=== PATIENT | female | born 1940 | race African-American/Black ===

== ENCOUNTER 2016-10-13 13:28 | Emergency (ER) | payer MEDICARE ==
[2016-10-13] MEDS ORDERED: ASPIRIN 81 MG TABLET, CHEWABLE PO ONE (14:59)
--- NOTE | 2016-10-13 15:19 | ER Document Report ---
ED Blood Pressure Problem - General Mode of Arrival: Medic Information source: Patient, Emergency Med Personnel TRAVEL OUTSIDE OF THE [place] IN LAST 30 DAYS: No - HPI Patient complains to provider of: High blood pressure Associated symptoms: Other - See above <GARRETT LUTHER - Last Filed: 10/13/16 17:50> <GABRIELVICTOR HUGO JOE - Last Filed: 10/13/16 22:42> - General Chief Complaint: High Blood Pressure Stated Complaint: BLOOD PRESSURE PROBLEMS Notes: Patient is a 76 year old female, with a past medical history including HTN, who presents to the emergency department via EMS complaining of high blood pressure. Patient complains of a bad headache that is still present. 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 Patient reports that she usually takes Lisinopril but that her prescription has run out and she has not been taking the medication. Patient denies chest pain, breathing problems, difficulty moving, and taking blood thinners. Patient states she has been using Tylenol to treat her headaches at home. PCP: Dr. Castaneda (GARRETT LUTHER) - Related Data Allergies/Adverse Reactions: codeine [Codeine] Allergy (Verified 01/06/15 15:39) iodine [Iodine] Allergy (Verified 01/06/15 15:39) Penicillins Allergy (Verified 01/06/15 15:39) Sulfa (Sulfonamide Antibiotics) Allergy (Verified 01/06/15 15:39) Past Medical History - General Information source: Patient - Social History Smoking Status: Unknown if Ever Smoked Family History: Reviewed & Not Pertinent - Past Medical History Cardiac Medical History: Reports: Hx Hypertension - unmedicated Musculoskeltal Medical History: Reports Hx Arthritis Past Surgical History: Reports: Hx Breast Surgery, Hx Orthopedic Surgery - Immunizations Immunizations up to date: Yes Hx Diphtheria, Pertussis, Tetanus Vaccination: No Hx Pneumococcal Vaccination: 07/22/13 <GARRETT LUTHER - Last Filed: 10/13/16 17:50> Review of Systems - Review of Systems Constitutional: See HPI, Other - high blood pressure EENT: No symptoms reported Cardiovascular: denies: Chest pain Respiratory: denies: Other - Breathing difficulty Gastrointestinal: denies: Abdominal pain Genitourinary: No symptoms reported Female Genitourinary: No symptoms reported Musculoskeletal: No symptoms reported Skin: No symptoms reported Hematologic/Lymphatic: No symptoms reported Neurological/Psychological: See HPI, Headaches -: Yes All other systems reviewed and negative <GARRETT LUTHER - Last Filed: 10/13/16 17:50> Physical Exam - Vital signs Interpretation: Hypertensive, Tachycardic - General General appearance: Alert In distress: Mild - HEENT Head: Normocephalic, Atraumatic Eyes: Normal Pupils: PERRL - Respiratory Respiratory status: No respiratory distress Chest status: Nontender Breath sounds: Normal Chest palpation: Normal - Cardiovascular Rhythm: Regular Heart sounds: Normal auscultation Murmur: No - Abdominal Inspection: Normal Distension: No distension Bowel sounds: Normal Tenderness: Nontender Organomegaly: No organomegaly - Back Back: Normal, Nontender - Extremities General upper extremity: Normal inspection, Nontender, Normal color, Normal ROM , Normal temperature General lower extremity: Normal inspection, Nontender, Normal color, Normal ROM , Normal temperature, Normal weight bearing. No: Stacey's sign - Neurological Neuro grossly intact: Yes Cognition: Normal Orientation: AAOx4 [place] Coma Scale Eye Opening: Spontaneous [place] Coma Scale Verbal: Oriented Vero Coma Scale Motor: Obeys Commands [place] Coma Scale Total: 15 Speech: Normal Motor strength normal: LUE, RUE, LLE, RLE Sensory: Normal - Psychological Associated symptoms: Normal affect, Normal mood - Skin Skin Temperature: Warm Skin Moisture: Dry Skin Color: Normal <VICTOR HUGO RIOS - Last Filed: 10/13/16 22:42> - Vital signs Vitals: Temp Pulse Resp BP Pulse Ox 98.4 F 130 H 16 166/116 H 96 10/13/16 13:38 10/13/16 13:38 10/13/16 13:38 10/13/16 13:38 10/13/16 13:38 Course - Laboratory Result Diagrams: 10/13/16 16:30 10/13/16 16:30 <GARRETT LUTHER - Last Filed: 10/13/16 17:50> - Laboratory Result Diagrams: 10/13/16 16:30 10/13/16 16:30 <VICTOR HUGO RIOS - Last Filed: 10/13/16 22:42> - Re-evaluation Re-evalutation: 10/13/16 22:39 Patient is a 76-year-old female who presented with hypertension and tachycardia earlier shape. Patient was given labetalol and Zofran prior to arrival. Patient has been observed in the emergency department for 9 hours now. Patient has had complete resolution of her headache. Blood pressure is down. Patient has been discharged with Dr. Rg. She has not been taking her medications because she said that she ran out. Dr. Rg stated to medicate the patient with metoprolol and lisinopril as are her home medications and the patient could be sent home. Patient informed me that she didn't take the medication because she doesn't like it. Patient is instructed that she needs to take her metoprolol because of her history of A. fib and very high blood pressure today. It is been told to her that if she does not take it she is at risk for heart attack or stroke. Patient has been instructed to take at least the metoprolol if she does not want to take the lisinopril at this time. She is to follow-up with Dr. Castaneda on Saturday and if she cannot do that then Saturday. Understands and agrees with plan. Stable for discharge. (VICTOR HUGO RIOS ) - Vital Signs Vital signs: Temp Pulse Resp BP Pulse Ox 98.3 F 130 H 19 146/85 H 98 10/13/16 22:27 10/13/16 13:38 10/13/16 22:27 10/13/16 22:27 10/13/16 22:27 - Laboratory Laboratory results interpreted by me: 10/13/16 10/13/16 10/13/16 15:45 16:30 16:30 RDW 14.1 H Chloride 110 H Total Protein 6.0 L Albumin 3.3 L Urine Blood SMALL H Ur Leukocyte Esterase TRACE H Critical Care Note - Critical Care Note Total time excluding time spent on procedures (mins): 35 - evaluation and management of blood pressure, tachycardia, re-evaluations, coordination with specialist, counseling of patient <VICTOR HUGO RIOS - Last Filed: 10/13/16 22:42> Discharge <GARRETT LUTHER - Last Filed: 10/13/16 17:50> <VICTOR HUGO RIOS - Last Filed: 10/13/16 22:42> - Discharge Clinical Impression: Hypertensive urgency Headache Qualifiers: Headache type: unspecified Headache chronicity pattern: acute headache Intractability: not intractable Qualified Code(s): R51 - Headache Condition: Stable Disposition: HOME, SELF-CARE Instructions: High Blood Pressure, Requiring Treatment ([facility]), Headache ([facility]) Prescriptions: Lisinopril 10 mg PO DAILY #30 tablet Metoprolol Succinate [Toprol Xl 50 mg Tab.sr] 50 mg PO DAILY #30 tab.sr.24h Referrals: FERNIE CASTANEDA MD [Primary Care Provider] - 10/15/16 Scribe Attestation: 10/13/16 22:42 I personally performed the services described in the documentation, reviewed and edited the documentation which was dictated to the scribe in my presence, and it accurately records my words and actions. (VICTOR HUGO RIOS) Scribe Documentation - Scribe Written by Torsten:: torsten Cox, 10/13/16, 1024 acting as scribe for :: Gabriel <GARRETT LUTHER - Last Filed: 10/13/16 17:50>
[2016-10-13] MEDS ORDERED: DIPHENHYDRAMINE HCL 50 MG/ML VIAL IV ONE (15:43)
[2016-10-13 16:49] LABS: ABSOLUTE BASOPHILS # (AUTO) 0.1 10^3/uL (0.0-0.2); ABSOLUTE EOSINOPHILS # (AUTO) 0.1 10^3/uL (0.0-0.6); ABSOLUTE LYMPHOCYTES (AUTO) 1.7 10^3/uL (0.5-4.7); ABSOLUTE MONOCYTES (AUTO) 0.3 10^3/uL (0.1-1.4); ABSOLUTE NEUT (AUTO) 3.2 10^3/uL (1.7-8.2); BASOPHILS % (AUTO) 1.9 % (0-2); EOSINOPHILS % (AUTO) 1.3 % (0-6); HEMATOCRIT 39.2 % (36.0-47.0); HGB HCT DIFFERENCE -0.2; LYMPHOCYTES % (AUTO) 32.4 % (13-45); MEAN CORPUSCULAR HEMOGLOBIN 29.1 pg (27.0-33.4); MEAN CORPUSCULAR HGB CONC 33.1 g/dL (32.0-36.0); MEAN CORPUSCULAR VOLUME 88 fl (80-97); MONOCYTES % (AUTO) 5.3 % (3-13); RED BLOOD COUNT 4.46 10^6/uL (3.72-5.28); RED CELL DISTRIBUTION WIDTH 14.1 % (11.5-14.0); SEGMENTED NEUTROPHILS % (AUTO) 59.1 % (42-78); WHITE BLOOD COUNT 5.4 10^3/uL (4.0-10.5)
[2016-10-13 16:56] LABS: PROTHROMBIN TIME 13.9 SEC (11.4-15.4)
[2016-10-13 16:57] LABS: ALANINE AMINOTRANSFERASE 27 U/L (9-52); ALBUMIN 3.3 g/dL (3.5-5.0); ALKALINE PHOSPHATASE 92 U/L (38-126); ANION GAP 9 (5-19); ASPARTATE AMINO TRANSFERASE 25 U/L (14-36); BILIRUBIN,DIRECT 0.3 mg/dL (0.0-0.4); BILIRUBIN,TOTAL 0.3 mg/dL (0.2-1.3); BLOOD UREA NITROGEN 10 mg/dL (7-20); CALCIUM 8.9 mg/dL (8.4-10.2); CARBON DIOXIDE 23 mmol/L (22-30); CHLORIDE 110 mmol/L (98-107); CREATINE KINASE 58 U/L (30-135); CREATININE RESULT 0.87 mg/dL (0.52-1.25); GLUCOSE 109 mg/dL (75-110); SODIUM 142.4 mmol/L (137-145)
[2016-10-13 17:03] LABS: APPEARANCE,URINE CLEAR; BILIRUBIN,URINE NEGATIVE (NEGATIVE); GLUCOSE, URINE NEGATIVE (NEGATIVE); KETONES,URINE NEGATIVE (NEGATIVE); LEUKOCYTE ESTERASE,URINE TRACE (NEGATIVE); NITRITE,URINE NEGATIVE (NEGATIVE); PROTEIN,URINE NEGATIVE (NEGATIVE); URINE SPECIFIC GRAVITY 1.008; UROBILINOGEN,URINE NEGATIVE mg/dL (<2.0)
[2016-10-13 17:09] LABS: CREATINE KINASE MB 0.54 ng/mL (<4.55)
[2016-10-13 17:14] LABS: TROPONIN I < 0.012 ng/mL
--- NOTE | 2016-10-13 17:19 | EKG REPORT ---
SEVERITY:- ABNORMAL ECG - SINUS TACHYCARDIA RIGHT BUNDLE BRANCH BLOCK : Confirmed by: Romeo Farfan MD 13-Oct-2016 17:19:15
[2016-10-13] MEDS ORDERED: METOPROLOL SUCCINATE 50 MG TAB.SR.24H PO ONE (20:14)
[2016-10-13 22:37] VITALS: BP 146/85
== END 2016-10-13 22:37 | disposition home or self-care (01) ==
LOC: ER 13:28
DX: I16.0 Hypertensive urgency (principal); R51 Headache; R00.0 Tachycardia, unspecified; I10 Essential (primary) hypertension; Z88.6 Allergy status to analgesic agent; Z88.0 Allergy status to penicillin; Z88.2 Allergy status to sulfonamides
CPT/HCPCS: 93005; 99291; 96374; 36415; 82553; 82550; 85025; 85610; 80053; 81001; 84484; 71010; 70450; 70496; 93010; A9270 ×2; J1200

== ENCOUNTER → 2017-11-21 | Outpatient (CLI) | payer MEDICARE ==
--- NOTE | 2017-11-21 16:56 | RADIOLOGY REPORT (SQ) ---
EXAM DESCRIPTION: HIP RIGHT AP/LATERAL COMPLETED DATE/TIME: 11/21/2017 12:06 pm REASON FOR STUDY: PAIN IN RIGHT HIP M25.551 PAIN IN RIGHT HIP COMPARISON: None. NUMBER OF VIEWS: Two views. TECHNIQUE: AP pelvis and additional frog-leg view of the right hip. LIMITATIONS: None. FINDINGS: MINERALIZATION: Osteopenic RIGHT HIP: Right acute subcapital femoral neck fracture, with very mild valgus angulation. This rep ort was called to Xiao Ca 1640 hours 11/21/2017. LEFT HIP: No fracture or dislocation. No worrisome bone lesions. PUBIS AND ISCHIUM: No fracture. PELVIS: No fracture. SACRUM: No fracture or dislocation. No worrisome bone lesions. LOWER LUMBAR SPINE: Not well seen SOFT TISSUES: No findings. OTHER: No other significant finding. IMPRESSION: Acute subcapital femoral neck fracture with mild valgus angulation. Report called to Xiao Ca 1640 hours 11/21/2017 TECHNICAL DOCUMENTATION: JOB ID: [id number] [employer]- All Rights Reserved Reading location - IP/workstation name: [email or web address]
== END ==
LOC: OD 11:51
PROVIDERS: ATTEND Nurse Practitioner Family
DX: M25.551 Pain in right hip (principal); S72.011A Unspecified intracapsular fracture of right femur, initial encounter for closed fracture; X58.XXXA Exposure to other specified factors, initial encounter

== ENCOUNTER 2017-11-22 16:44 | Inpatient (IN) | payer MEDICARE ==
--- NOTE | 2017-11-22 17:17 | ER Document Report ---
ED Medical Screen (RME) - General Chief Complaint: Hip Injury Stated Complaint: FALL/RIGHT HIP PAIN Time Seen by Provider: 11/22/17 17:08 Notes: 77-year-old female patient fell on 10/26/2017 injuring her right hip. Her pain management doctors x-rayed the hip yesterday and shows an impacted fracture of the right femoral neck. Dr. Clinton had been consulted and requested the patient come through the emergency room and be admitted by her primary care provider. I have greeted and performed a rapid initial assessment of this patient. A comprehensive ED assessment and evaluation of the patient, analysis of test results and completion of the medical decision making process will be conducted by additional ED providers. TRAVEL OUTSIDE OF THE [place] IN LAST 30 DAYS: No - Related Data Allergies/Adverse Reactions: aloe vera Allergy (Verified 11/22/17 17:07) codeine [Codeine] Allergy (Verified 11/22/17 17:07) iodine [Iodine] Allergy (Verified 11/22/17 17:07) Penicillins Allergy (Verified 11/22/17 17:07) Sulfa (Sulfonamide Antibiotics) Allergy (Verified 11/22/17 17:07) Past Medical History - Social History Chew tobacco use (# tins/day): No Frequency of alcohol use: None Drug Abuse: None - Past Medical History Cardiac Medical History: Reports: Hx Hypertension - unmedicated Renal/ Medical History: Denies: Hx Peritoneal Dialysis Musculoskeltal Medical History: Reports Hx Arthritis Psychiatric Medical History: Denies: Hx Depression Past Surgical History: Reports: Hx Breast Surgery, Hx Orthopedic Surgery - Immunizations Immunizations up to date: Yes Hx Diphtheria, Pertussis, Tetanus Vaccination: No Physical Exam - Vital signs Vitals: Temp Pulse Resp BP Pulse Ox 97.8 F 58 L 18 127/75 H 96 11/22/17 16:51 11/22/17 16:51 11/22/17 16:51 11/22/17 16:51 11/22/17 16:51 Course - Vital Signs Vital signs: Temp Pulse Resp BP Pulse Ox 97.8 F 58 L 18 127/75 H 96 11/22/17 16:51 11/22/17 16:51 11/22/17 16:51 11/22/17 16:51 11/22/17 16:51
--- NOTE | 2017-11-22 17:40 | RADIOLOGY REPORT (SQ) ---
EXAM DESCRIPTION: CHEST SINGLE VIEW COMPLETED DATE/TIME: 11/22/2017 5:29 pm REASON FOR STUDY: pre-op, hip FX COMPARISON: 10/13/2016 EXAM PARAMETERS: NUMBER OF VIEWS: One view. TECHNIQUE: Single frontal radiographic view of the chest acquired. RADIATION DOSE: NA LIMITATIONS: None. FINDINGS: LUNGS AND PLEURA: No opacities, masses or pneumothorax. No pleural effusion. MEDIASTINUM AND HILAR STRUCTURES: No masses. Contour normal. HEART AND VASCULAR STRUCTURES: Heart normal in size. Normal vasculature. BONES: No acute findings. HARDWARE: None in the chest. OTHER: Breast prostheses. IMPRESSION: NO ACUTE RADIOGRAPHIC FINDING IN THE CHEST. TECHNICAL DOCUMENTATION: JOB ID: [id number] [email or web address]- All Rights Reserved Reading location - IP/workstation name: [email or web address]
[2017-11-22 18:09] LABS: ABSOLUTE EOSINOPHILS # (AUTO) 0.1 10^3/uL (0.0-0.6); ABSOLUTE LYMPHOCYTES (AUTO) 2.7 10^3/uL (0.5-4.7); ABSOLUTE MONOCYTES (AUTO) 0.5 10^3/uL (0.1-1.4); ABSOLUTE NEUT (AUTO) 3.1 10^3/uL (1.7-8.2); BASOPHILS % (AUTO) 0.7 % (0-2); EOSINOPHILS % (AUTO) 1.4 % (0-6); HEMATOCRIT 44.2 % (36.0-47.0); HEMOGLOBIN 14.9 g/dL (12.0-15.5); LYMPHOCYTES % (AUTO) 41.9 % (13-45); MEAN CORPUSCULAR HEMOGLOBIN 29.5 pg (27.0-33.4); MEAN CORPUSCULAR HGB CONC 33.7 g/dL (32.0-36.0); MEAN CORPUSCULAR VOLUME 88 fl (80-97); MONOCYTES % (AUTO) 8.1 % (3-13); PLATELET COUNT 329 10^3/uL (150-450); RED BLOOD COUNT 5.06 10^6/uL (3.72-5.28); RED CELL DISTRIBUTION WIDTH 16.1 % (11.5-14.0); SEGMENTED NEUTROPHILS % (AUTO) 47.9 % (42-78); TOTAL CELLS COUNTED % (AUTO) 100 %; WHITE BLOOD COUNT 6.4 10^3/uL (4.0-10.5)
[2017-11-22 18:10] LABS: INTERNATIONAL RATION (INR) 0.92; PROTHROMBIN TIME 12.8 SEC (11.4-15.4)
--- NOTE | 2017-11-22 18:13 | ER Document Report ---
ED General - General Chief Complaint: Hip Injury Stated Complaint: FALL/RIGHT HIP PAIN Time Seen by Provider: 11/22/17 17:08 Mode of Arrival: Ambulatory Information source: Patient, Relative Notes: 77-year-old female with a history of hypertension presents after her pain management physician found her to have a right hip fracture. Patient states that she had a trip and fall one month prior to arrival. She states she experienced cramping in her right leg which then subsequently gave out causing her to fall backwards onto her buttocks. She denies any head injury, loss of consciousness. She has been ambulating for the last month but with pain. Patient is in pain management for chronic right shoulder pain. TRAVEL OUTSIDE OF THE [place] IN LAST 30 DAYS: No - HPI Onset: Other - Month prior to arrival Onset/Duration: Constant Quality of pain: Throbbing Severity: Mild Associated symptoms: None Exacerbated by: Walking Relieved by: Denies Similar symptoms previously: No Recently seen / treated by doctor: Yes - Related Data Allergies/Adverse Reactions: aloe vera Allergy (Verified 11/22/17 17:07) codeine [Codeine] Allergy (Verified 11/22/17 17:07) iodine [Iodine] Allergy (Verified 11/22/17 17:07) Penicillins Allergy (Verified 11/22/17 17:07) Sulfa (Sulfonamide Antibiotics) Allergy (Verified 11/22/17 17:07) Past Medical History - General Information source: Patient - Social History Smoking Status: Current Every Day Smoker Chew tobacco use (# tins/day): No Frequency of alcohol use: None Drug Abuse: None Lives with: Family Family History: Reviewed & Not Pertinent Patient has suicidal ideation: No Patient has homicidal ideation: No - Past Medical History Cardiac Medical History: Reports: Hx Hypertension - unmedicated Renal/ Medical History: Denies: Hx Peritoneal Dialysis Musculoskeltal Medical History: Reports Hx Arthritis Psychiatric Medical History: Denies: Hx Depression Past Surgical History: Reports: Hx Breast Surgery, Hx Orthopedic Surgery - Immunizations Immunizations up to date: Yes Hx Diphtheria, Pertussis, Tetanus Vaccination: No Hx Pneumococcal Vaccination: 07/22/13 Review of Systems - Review of Systems Notes: Patient denies fever, chills, nausea, vomiting, headache, ear pain, sore throat , cough, chest pain, shortness of breath, abdominal pain, back pain, dysuria, hematuria, rash, SI/HI. Physical Exam - Vital signs Vitals: Temp Pulse Resp BP Pulse Ox 97.8 F 58 L 18 127/75 H 96 11/22/17 16:51 11/22/17 16:51 11/22/17 16:51 11/22/17 16:51 11/22/17 16:51 Interpretation: Normal. No: Febrile - Notes Notes: PHYSICAL EXAMINATION: GENERAL: Well-appearing, well-nourished and in no acute distress. HEAD: Atraumatic, normocephalic. EYES: Pupils equal round and reactive to light, extraocular movements intact, conjunctiva are normal. ENT: Nares patent, oropharynx clear without exudates. Moist mucous membranes. NECK: Normal range of motion, supple without lymphadenopathy LUNGS: Breath sounds clear to auscultation bilaterally and equal. No wheezes rales or rhonchi. HEART: Regular rate and rhythm without murmurs ABDOMEN: Soft, nontender, nondistended abdomen. No guarding, no rebound. No masses appreciated. Female : deferred Musculoskeletal: Normal range of motion, no pitting or edema. No cyanosis. No obvious deformity of the right hip. Pain with logrolling. DP pulse intact. NEUROLOGICAL: Cranial nerves grossly intact. Normal speech, normal gait. Normal sensory, motor exams PSYCH: Normal mood, normal affect. SKIN: Warm, Dry, normal turgor, no rashes or lesions noted. Course - Re-evaluation Re-evalutation: Laboratory 11/22/17 11/22/17 11/22/17 17:46 17:46 17:46 WBC 6.4 RBC 5.06 Hgb 14.9 Hct 44.2 MCV 88 MCH 29.5 MCHC 33.7 RDW 16.1 H Plt Count 329 Seg Neutrophils % 47.9 Lymphocytes % 41.9 Monocytes % 8.1 Eosinophils % 1.4 Basophils % 0.7 Absolute Neutrophils 3.1 Absolute Lymphocytes 2.7 Absolute Monocytes 0.5 Absolute Eosinophils 0.1 Absolute Basophils 0.0 PT 12.8 INR 0.92 Sodium Cancelled Potassium Cancelled Chloride Cancelled Carbon Dioxide Cancelled Anion Gap Cancelled BUN Cancelled Creatinine Cancelled Est GFR ( Amer) Cancelled Est GFR (Non-Af Amer) Cancelled Glucose Cancelled Calcium Cancelled Total Bilirubin Cancelled Direct Bilirubin Cancelled Neonat Total Bilirubin Cancelled Neonat Direct Bilirubin Cancelled Neonat Indirect Bili Cancelled AST Cancelled ALT Cancelled Alkaline Phosphatase Cancelled Total Protein Cancelled Albumin Cancelled 11/22/17 19:01 Patient presents after x-ray performed by her pain management physician revealed a right hip fracture. Orthopedic surgery aware. Patient will be admitted by Dr. Gill. - Vital Signs Vital signs: Temp Pulse Resp BP Pulse Ox 97.8 F 58 L 18 127/75 H 96 11/22/17 16:51 11/22/17 16:51 11/22/17 16:51 11/22/17 16:51 11/22/17 16:51 - Laboratory Result Diagrams: 11/22/17 17:46 11/22/17 17:46 Laboratory results interpreted by me: 11/22/17 17:46 RDW 16.1 H - Diagnostic Test Radiology reviewed: Image reviewed Discharge - Discharge Clinical Impression: Closed right hip fracture Qualifiers: Encounter type: initial encounter Qualified Code(s): S72.001A - Fracture of unspecified part of neck of right femur, initial encounter for closed fracture Condition: Good Disposition: ADMITTED INPATIENT Admitting Provider: Bridget
[2017-11-22 19:38] LABS: ALANINE AMINOTRANSFERASE 23 U/L (9-52); ALBUMIN 4.2 g/dL (3.5-5.0); ALKALINE PHOSPHATASE 89 U/L (38-126); ANION GAP 12 (5-19); ASPARTATE AMINO TRANSFERASE 21 U/L (14-36); BILIRUBIN,DIRECT 0.4 mg/dL (0.0-0.4); BILIRUBIN,TOTAL 0.5 mg/dL (0.2-1.3); BLOOD UREA NITROGEN 9 mg/dL (7-20); CALCIUM 10.1 mg/dL (8.4-10.2); CARBON DIOXIDE 22 mmol/L (22-30); CHLORIDE 106 mmol/L (98-107); GLUCOSE 89 mg/dL (75-110); POTASSIUM 4.3 mmol/L (3.6-5.0); TOTAL PROTEIN 7.3 g/dL (6.3-8.2)
--- NOTE | 2017-11-22 21:14 | EKG REPORT ---
SEVERITY:- ABNORMAL ECG - SINUS RHYTHM SUPRAVENTRICULAR BIGEMINY INCOMPLETE RIGHT BUNDLE BRANCH BLOCK : Confirmed by: Cyndee Limon 22-Nov-2017 21:14:05
[2017-11-22] MEDS ORDERED: ENOXAPARIN SODIUM INJ 40 MG/0.4 ML DISP.SYRIN SUBCUT ONE (22:00)
[2017-11-23] MEDS: LANSOPRAZOLE 30 MG TAB.RAP.DR PO SCH (05:46)
[2017-11-23] MEDS ORDERED: ENOXAPARIN SODIUM INJ 40 MG/0.4 ML DISP.SYRIN SUBCUT SCH (10:00)
[2017-11-23] MEDS: METOPROLOL SUCCINATE 50 MG TAB.SR.24H PO SCH (10:38)
--- NOTE | 2017-11-23 12:14 | PDOC H&P ---
History of Present Illness Admission Date/PCP: 11/22/17 18:32 ALBA CRUZ NP Patient complains of: Right hip pain History of Present Illness: GERARD PRUITT is a 77 year old female patient of Dr Romo who presented to the ED for further evaluation due to right hip pain and difficulty with walking. She reported that she developed right leg muscle spasm, lock up of her knee and subsequently fell on her right hip joint. There was subsequent pain and difficulty with walking. She has been staying at home since onset of her symptom about 1 month ago. She was referred to the ED by her pain management team upon discovery of closed fracture on her right hip X ray. The X ray was completed outside of our facility. She denied any chest pain, palpitation, dizziness or vertigo preceding her fall incident at home. She denied any fever, chills, or genitourinary symptoms to suggest ongoing infection. She denied tripping over any object or change in her floor level. Past Medical History Cardiac Medical History: Reports: Hypertension - unmedicated Musculoskeltal Medical History: Reports: Arthritis Psychiatric Medical History: Denies: Depression Past Surgical History Past Surgical History: Reports: Orthopedic Surgery Social History Lives with: Family Smoking Status: Current Every Day Smoker Frequency of Alcohol Use: None Hx Recreational Drug Use: No Drugs: None Hx Prescription Drug Abuse: No - Advance Directive Resuscitation Status: Full Code Family History Family History: Reviewed & Not Pertinent Parental Family History Reviewed: Yes Children Family History Reviewed: Yes Sibling(s) Family History Reviewed.: Yes Medication/Allergy Home Medications: Metoprolol Succinate [Toprol Xl 50 mg Tab.sr] 50 mg PO DAILYP PRN 11/22/17 Oxycodone HCl [Oxycodone HCl 10 MG Tablet] 10 mg PO Q8HP PRN 11/22/17 Allergies/Adverse Reactions: aloe vera Allergy (Verified 11/22/17 17:07) codeine [Codeine] Allergy (Verified 11/22/17 17:07) iodine [Iodine] Allergy (Verified 11/22/17 17:07) Penicillins Allergy (Verified 11/22/17 17:07) Sulfa (Sulfonamide Antibiotics) Allergy (Verified 11/22/17 17:07) Review of Systems Constitutional: ABSENT: chills, fever(s), headache(s), weight gain, weight loss Ears: ABSENT: hearing changes Nose, Mouth, and Throat: ABSENT: as per HPI, headache(s), mouth pain, sore throat, vertigo, other Cardiovascular: ABSENT: chest pain, dyspnea on exertion, edema, orthropnea, palpitations Respiratory: PRESENT: cough - occasionall productive of yellow mucous Gastrointestinal: ABSENT: abdominal pain, constipation, diarrhea, hematemesis, hematochezia, nausea, vomiting Musculoskeletal: PRESENT: deformity - related to multiple joints involvement with arthritis Integumentary: ABSENT: rash, wounds Neurological: ABSENT: abnormal gait, abnormal speech, confusion, dizziness, focal weakness, syncope Psychiatric: ABSENT: anxiety, depression, homidical ideation, suicidal ideation Endocrine: ABSENT: cold intolerance, heat intolerance, polydipsia, polyuria Hematologic/Lymphatic: ABSENT: easy bleeding, easy bruising, lymphadenopathy Allergic/Immunologic: ABSENT: seasonal rhinorrhea Physical Exam Vital Signs: Temp Pulse Resp BP Pulse Ox 98.5 F 67 16 124/65 64 L 11/23/17 04:00 11/23/17 07:00 11/23/17 08:00 11/23/17 08:00 11/23/17 08:00 Intake & Output 11/22/17 11/23/17 11/24/17 06:59 06:59 06:59 Intake Total 317 Balance 317 Weight 49.6 kg General appearance: PRESENT: no acute distress, well-developed, well-nourished Head exam: PRESENT: atraumatic, normocephalic Eye exam: PRESENT: conjunctiva pink, EOMI, PERRLA. ABSENT: scleral icterus Mouth exam: PRESENT: moist Respiratory exam: PRESENT: clear to auscultation mary ann. ABSENT: rhonchi, wheezes Cardiovascular exam: PRESENT: RRR. ABSENT: diastolic murmur, rubs, systolic murmur Pulses: PRESENT: normal dorsalis pedis pul, +2 pedal pulses bilateral Vascular exam: PRESENT: normal capillary refill. ABSENT: pallor GI/Abdominal exam: PRESENT: normal bowel sounds, soft. ABSENT: distended, guarding, mass, organolmegaly, rebound, tenderness Rectal exam: PRESENT: deferred Extremities exam: PRESENT: tenderness - right hip joint region with motion and palpation. ABSENT: calf tenderness, pedal edema Musculoskeletal exam: PRESENT: deformity - related to multiple joints involvment with arthritis. ABSENT: ambulatory Neurological exam: PRESENT: alert, awake, oriented to person, oriented to place , oriented to time, oriented to situation, CN II-XII grossly intact. ABSENT: motor sensory deficit Psychiatric exam: PRESENT: appropriate affect, normal mood. ABSENT: homicidal ideation, suicidal ideation Skin exam: PRESENT: dry, intact, warm. ABSENT: cyanosis, rash Results Laboratory Results: 11/22/17 19:05 11/22/17 11/22/17 19:05 19:05 Sodium 140.0 Potassium 4.3 Chloride 106 Carbon Dioxide 22 Anion Gap 12 BUN 9 Creatinine 0.80 Est GFR ( Amer) > 60 Est GFR (Non-Af Amer) > 60 Glucose 89 Calcium 10.1 Total Bilirubin 0.5 AST 21 ALT 23 Alkaline Phosphatase 89 Total Protein 7.3 Albumin 4.2 Blood Type B POSITIVE Antibody Screen NEGATIVE Impressions: Chest X-Ray 11/22/17 17:16 IMPRESSION: NO ACUTE RADIOGRAPHIC FINDING IN THE CHEST. Assessment & Plan - Diagnosis (1) Closed right hip fracture Qualifiers: Encounter type: initial encounter Qualified Code(s): S72.001A - Fracture of unspecified part of neck of right femur, initial encounter for closed fracture (2) Fracture of right hip due to osteoporosis Qualifiers: Encounter type: initial encounter Qualified Code(s): M80.051A - Age- related osteoporosis with current pathological fracture, right femur, initial encounter for fracture Is this a current diagnosis for this admission?: Yes Plan: See covering attending physician orders. (4) Osteoarthritis of both shoulders Qualifiers: Osteoarthritis type: primary Qualified Code(s): M19.011 - Primary osteoarthritis, right shoulder; M19.012 - Primary osteoarthritis, left shoulder ; M19.012 - Primary osteoarthritis, left shoulder Is this a current diagnosis for this admission?: Yes Plan: See covering attending physician orders. (5) Chronic pain syndrome Is this a current diagnosis for this admission?: Yes Plan: See covering attending physician orders. (6) Chronic prescription opiate use Is this a current diagnosis for this admission?: Yes Plan: See covering attending physician orders. - Time Time Spent: 50 to 70 Minutes Medications reviewed and adjusted accordingly: Yes Anticipated discharge: Home with Homehealth - Inpatient Certification Based on my medical assessment, after consideration of the patient's comorbidities, presenting symptoms, or acuity I expect that the services needed warrant INPATIENT care.: Yes I certify that my determination is in accordance with my understanding of Medicare's requirements for reasonable and necessary INPATIENT services [42 CFR 412.3e].: Yes Medical Necessity: Need Close Monitoring Due to Risk of Patient Decompensation, Need For IV Fluids, Need For Continuous Telemetry Monitoring, Need for Surgery, Risk of Complication if Not Cared For in Hospital Post Hospital Care: D/C Jitney Driver Documentation - Plan Summary Plan Summary: See covering attending physician orders.
[2017-11-23] MEDS ORDERED: GUAIFENESIN SYRP 200 MG/10 ML UDC PO PRN (12:16)
--- NOTE | 2017-11-23 17:59 | RADIOLOGY REPORT (SQ) ---
EXAM DESCRIPTION: HIP RIGHT AP/LATERAL COMPLETED DATE/TIME: 11/23/2017 5:44 pm REASON FOR STUDY: Fall with right hip pain COMPARISON: 11/21/2017 NUMBER OF VIEWS: Two views. TECHNIQUE: AP pelvis and additional frog-leg view of the right hip. LIMITATIONS: None. FINDINGS: MINERALIZATION: Normal. RIGHT HIP: Subcapital fracture of the right femoral neck. Unchanged from 2 days ago. LEFT HIP: No fracture or dislocation. No worrisome bone lesions. PUBIS AND ISCHIUM: No fracture. PELVIS: No fracture. SACRUM: No fracture or dislocation. No worrisome bone lesions. LOWER LUMBAR SPINE: No fracture or dislocation. No worrisome bone lesions. No significant disc disea se. SOFT TISSUES: No findings. OTHER: No other significant finding. IMPRESSION: Subcapital fracture of the right femoral neck. TECHNICAL DOCUMENTATION: JOB ID: [id number] [employer]- All Rights Reserved Reading location - IP/workstation name: [email or web address]
--- NOTE | 2017-11-23 18:02 | PDOC CONSULTATION ---
Consultation Consult Date: 11/23/17 Consult reason:: Right hip fracture History of Present Illness Admission Date/PCP: 11/22/17 18:32 ALBA CRUZ NP Patient complains of: Right hip pain History of Present Illness: GERARD PRUITT is a 77 year old female status post fall about 3 weeks ago. She had increasing pain in her groin on the right side with ambulation and weightbearing. She saw her pain management clinic which order an x-ray and determined the patient had a valgus impacted right hip femoral neck fracture. Patient complains of range of motion pain and the groin and tenderness to palpation on the groin as well as pain with ambulation and weightbearing. Denies any numbness or tingling or paresthesias or any other extremity injury. Past Medical History Cardiac Medical History: Reports: Hypertension - unmedicated Musculoskeltal Medical History: Reports: Arthritis Psychiatric Medical History: Denies: Depression Past Surgical History Past Surgical History: Reports: Orthopedic Surgery Social History Lives with: Family Smoking Status: Current Every Day Smoker Frequency of Alcohol Use: None Hx Recreational Drug Use: No Drugs: None Hx Prescription Drug Abuse: No - Advance Directive Resuscitation Status: Full Code Family History Parental Family History Reviewed: No Children Family History Reviewed: Yes - Daughter has kidney failure that requires dialysis. Sibling(s) Family History Reviewed.: No Medication/Allergy Home Medications: Metoprolol Succinate [Toprol Xl 50 mg Tab.sr] 50 mg PO DAILYP PRN 11/22/17 Oxycodone HCl [Oxycodone HCl 10 MG Tablet] 10 mg PO Q8HP PRN 11/22/17 Allergies/Adverse Reactions: aloe vera Allergy (Verified 11/22/17 17:07) codeine [Codeine] Allergy (Verified 11/22/17 17:07) iodine [Iodine] Allergy (Verified 11/22/17 17:07) Penicillins Allergy (Verified 11/22/17 17:07) Sulfa (Sulfonamide Antibiotics) Allergy (Verified 11/22/17 17:07) Review of Systems Constitutional: ABSENT: fever(s), headache(s), night sweats Eyes: ABSENT: visual disturbances Ears: ABSENT: hearing changes Nose, Mouth, and Throat: ABSENT: headache(s), sore throat Cardiovascular: ABSENT: chest pain, edema, orthropnea Respiratory: ABSENT: dyspnea, hemoptysis Gastrointestinal: ABSENT: diarrhea, dysphagia, hematemesis, hematochezia Genitourinary: ABSENT: dysuria, hematuria Musculoskeletal: PRESENT: as per HPI, catching, joint swelling. ABSENT: deformity, dislocation Integumentary: ABSENT: lesions, pruritus, rash Neurological: PRESENT: as per HPI, weakness. ABSENT: abnormal gait, convulsions , numbness, paresthesias Psychiatric: ABSENT: hallucinations, homidical ideation, suicidal ideation Endocrine: ABSENT: cold intolerance, heat intolerance Hematologic/Lymphatic: ABSENT: lymphadenopathy Allergic/Immunologic: ABSENT: seasonal rhinorrhea Physical Exam Vital Signs: Temp Pulse Resp BP Pulse Ox 37.3 C 65 20 122/64 95 11/23/17 11:30 11/23/17 14:00 11/23/17 11:30 11/23/17 11:30 11/23/17 11:30 Intake & Output 11/22/17 11/23/17 11/24/17 06:59 06:59 06:59 Intake Total 317 239 Balance 317 239 Weight 49.6 kg General appearance: PRESENT: no acute distress, thin Eye exam: PRESENT: EOMI, PERRLA. ABSENT: nystagmus Ear exam: PRESENT: normal external ear exam Mouth exam: PRESENT: neck supple Neck exam: ABSENT: lymphadenopathy, thyromegaly Respiratory exam: PRESENT: symmetrical, unlabored. ABSENT: accessory muscle use , tachypnea Pulses: PRESENT: +1 pedal pulses bilateral Vascular exam: PRESENT: normal capillary refill GI/Abdominal exam: PRESENT: soft. ABSENT: organolmegaly, tenderness Musculoskeletal exam: ABSENT: deformity, dislocation Neurological exam: PRESENT: alert, awake, oriented to person, oriented to place , oriented to time, oriented to situation Psychiatric exam: PRESENT: appropriate affect, normal mood Skin exam: ABSENT: abrasion, cyanosis, rash, skin tears Adult Front & Back Image: 1 - Pain with palpation of the right groin. Pain with flexion and internal rotation of the right hip. No tenderness over the greater trochanter or thigh. Limb lengths are grossly equal. She is neurovascular intact distally. Results Laboratory Results: 11/22/17 19:05 11/22/17 11/22/17 19:05 19:05 Sodium 140.0 Potassium 4.3 Chloride 106 Carbon Dioxide 22 Anion Gap 12 BUN 9 Creatinine 0.80 Est GFR ( Amer) > 60 Est GFR (Non-Af Amer) > 60 Glucose 89 Calcium 10.1 Total Bilirubin 0.5 AST 21 ALT 23 Alkaline Phosphatase 89 Total Protein 7.3 Albumin 4.2 Blood Type B POSITIVE Antibody Screen NEGATIVE Impressions: Chest X-Ray 11/22/17 17:16 IMPRESSION: NO ACUTE RADIOGRAPHIC FINDING IN THE CHEST. Status: Image reviewed by me Assessment & Plan - Diagnosis (1) Closed right hip fracture Qualifiers: Encounter type: initial encounter Qualified Code(s): S72.001A - Fracture of unspecified part of neck of right femur, initial encounter for closed fracture Is this a current diagnosis for this admission?: Yes Plan: 77-year-old female with valgus impacted right hip fracture. She still has pain despite injury occurring 3 weeks ago. Still has pain with ambulation. After discussing nonoperative treatment versus percutaneous pinning of her right hip. Patient elected to proceed with surgery which will allow her to weight-bear as tolerated tomorrow with no concerns of displacing her fracture and requiring a hemiarthroplasty. Risk and benefits were discussed and the patient agreed to consent. We will make her n.p.o. and started on IV fluids and hold her anticoagulation. We will attempt to proceed with pertains pinning of her right hip which will estimate about 30 minutes tomorrow on 11/24/2016.
[2017-11-23] MEDS: HYDROCODONE/ACETAMINOPHEN 5-325 MG TABLET PO PRN (18:45)
[2017-11-24] MEDS: RINGERS SOLUTION,LACTATED 1,000 ML IV PRN ×2 (00:54→21:17)
[2017-11-24] MEDS: LANSOPRAZOLE 30 MG TAB.RAP.DR PO SCH (04:48)
[2017-11-24] MEDS ORDERED: EPHEDRINE SULFATE INJ 50 MG/1 ML AMPULE ONE (07:48)
[2017-11-24] MEDS ORDERED: PROPOFOL INJ 200 MG/20 ML VIAL IV ONE (07:48)
[2017-11-24] MEDS ORDERED: MIDAZOLAM 2 MG/2 ML INJ ONE (07:48)
[2017-11-24] MEDS ORDERED: KETAMINE HCL INJ 500 MG/10 ML VIAL ONE (07:48)
[2017-11-24] MEDS ORDERED: ACETAMINOPHEN 100 ML IV ONE ×2 (07:48→08:37)
[2017-11-24] MEDS ORDERED: FENTANYL CITRATE INJ/PF 100 MCG/2 ML AMPUL ONE ×2 (07:48→10:04)
[2017-11-24] MEDS ORDERED: PROMETHAZINE HCL INJ 25 MG/1 ML VIAL IV PRN ×2 (08:01)
[2017-11-24] MEDS ORDERED: MEPERIDINE HCL/PF INJ 25 MG/1 ML DISP.SYRIN IV PRN (08:01)
[2017-11-24] MEDS ORDERED: ONDANSETRON HCL INJ/PF 4 MG/2 ML SDV IV PRN (08:01)
[2017-11-24] MEDS ORDERED: FENTANYL CITRATE INJ/PF 100 MCG/2 ML AMPUL IV PRN ×3 (08:01)
[2017-11-24] MEDS ORDERED: DIPHENHYDRAMINE HCL 50 MG/ML VIAL IV PRN (08:01)
[2017-11-24] MEDS ORDERED: BUPIVACAINE HCL 0.5 % INJ/PF 30 ML SDV ONE (08:18)
[2017-11-24] MEDS ORDERED: CEFAZOLIN INJ 1 GM VIAL ONE (08:18)
[2017-11-24] MEDS ORDERED: LIDOCAINE 1% INJ-PF (10 MG/ML) 30 ML SDV ONE (08:18)
[2017-11-24] MEDS ORDERED: RINGERS SOLUTION,LACTATED 1,000 ML IV PRN (09:44)
--- NOTE | 2017-11-24 09:44 | Operative Report ---
Operative Report DATE OF SURGERY: 11/24/17 PREOPERATIVE DIAGNOSIS: Right valgus impacted femoral neck fracture POSTOPERATIVE DIAGNOSIS: Same OPERATION: Right hip percutaneous pinning SURGEON: JL UMAÑA ANESTHESIA: GA TISSUE REMOVED OR ALTERED: None COMPLICATIONS: None ESTIMATED BLOOD LOSS: 20 mL INTRAOPERATIVE FINDINGS: As above PROCEDURE: Procedure In Detail: Patient was seen and evaluated in the preoperative holding area. The right lower extremity was initialized and marked. Patient received 1g of Ancef IV for bacterial prophylaxis. Patient was taken back to the operative room where transferred to the operative table and placed under MAC. Once they were adequately anesthetized the right lower extremity is placed in a flexed abducted external rotated position and carefully padded and the right lower extremity was placed in traction. A surgical team debriefing was performed ensuring all instrumentation was available, the surgical procedure was discussed with possible concerns reviewed. Traction, adduction and internal rotation of the lower extremity was done C-arm fluoroscopy was used confirming the valgus impacted fracture on the right hip. Traction was done but there was little motion at the fracture site and what ever reduction we obtain we left it in place. The right hip and lower extremity was prepped with ChloraPrep and draped in a sterile fashion. A timeout was done identifying correct patient, procedure and extremity everyone in attendance agree with this and verbalized no concerns. Combination of lidocaine and Marcaine was then injected in the anticipated surgical site first superficially and then deep. Surgical incision was made careful dissection was done through the fascia down to the lateral cortex of the femur. With the use of a threaded K wire I drilled along the more superior anterior aspect of the neck crossing the fracture line. Lateral projection was then done confirming an anterior superior placed wire. I then used the aiming device and placed a second wire posterior and superior and lastly a wire was placed along the inferior aspect of the neck along the calcar. This gave me a inverse triangular configuration. AP and lateral projections were done confirming appropriate placement of my guidewires. I then placed 3 partially-threaded 6.5 mm cannulated screws lengths being in 80 mm, 80 mm, 75 mm. I got excellent fixation across the fracture into the subchondral bone. AP lateral radiographs were done demonstrating no evidence of interarticular screw penetration. Then under live fluoroscopy the hip was ranged to confirm there is no evidence of intra- articular penetration. I then copiously irrigated the wound with normal saline. A peripheral vasculature was carefully coagulated. The deep fascia was closed with interrupted 2-0 Vicryl suture. Skin was closed with and then a OpSite dressing was applied. Patient was taken out of traction and taken to the recovery room.
[2017-11-24] MEDS ORDERED: MAG HYDROX/AL HYDROX/SIMETH SUSP 30 ML UDCUP PO PRN (09:46)
[2017-11-24] MEDS ORDERED: ACETAMINOPHEN 325 MG TABLET PO PRN (09:46)
[2017-11-24] MEDS ORDERED: GLYCOPYRROLATE INJ 0.4 MG/2 ML VIAL ONE (09:54)
[2017-11-24] MEDS ORDERED: DEXAMETHASONE SOD PHOSPHATE INJ 4 MG/1 ML VIAL ONE (09:54)
[2017-11-24] MEDS ORDERED: ONDANSETRON HCL INJ/PF 4 MG/2 ML SDV ONE (09:54)
[2017-11-24] MEDS ORDERED: METOCLOPRAMIDE HCL INJ/PF 10 MG/2 ML SDV ONE (09:54)
[2017-11-24] MEDS ORDERED: LIDOCAINE 2% INJ-PF (20 MG/ML) 2 ML AMPUL ONE (09:54)
--- NOTE | 2017-11-24 10:22 | RADIOLOGY REPORT (SQ) ---
EXAM DESCRIPTION: HIP RIGHT AP/LATERAL; NO CHG FLUORO COMPLETED DATE/TIME: 11/24/2017 10:10 am REASON FOR STUDY: ORIF COMPARISON: 11/23/2017 FLUOROSCOPY TIME: 0.9 minutes 7 images saved to PACS. TECHNIQUE: Intra-operative images acquired during surgical procedure to evaluate progress. NUMBER OF IMAGES: 7 LIMITATIONS: None. FINDINGS: Fluoroscopic imaging demonstrates internal fixation of right femoral neck fracture without gross complication. IMPRESSION: IMAGE(S) OBTAINED DURING PROCEDURE. COMMENT: Quality ID 145: Final reports for procedures using fluoroscopy that document radiation exp osure indices, or exposure time and number of fluorographic images (if radiation exposure indices are not available) Please consult full operative report of the attending physician for description of the procedure. TECHNICAL DOCUMENTATION: JOB ID: [id number] [employer]- All Rights Reserved Reading location - IP/workstation name: [email or web address]
--- NOTE | 2017-11-24 10:22 | RADIOLOGY REPORT (SQ) ---
EXAM DESCRIPTION: HIP RIGHT AP/LATERAL; NO CHG FLUORO COMPLETED DATE/TIME: 11/24/2017 10:10 am REASON FOR STUDY: ORIF COMPARISON: 11/23/2017 FLUOROSCOPY TIME: 0.9 minutes 7 images saved to PACS. TECHNIQUE: Intra-operative images acquired during surgical procedure to evaluate progress. NUMBER OF IMAGES: 7 LIMITATIONS: None. FINDINGS: Fluoroscopic imaging demonstrates internal fixation of right femoral neck fracture without gross complication. IMPRESSION: IMAGE(S) OBTAINED DURING PROCEDURE. COMMENT: Quality ID [id number]: Final reports for procedures using fluoroscopy that document radiation exp osure indices, or exposure time and number of fluorographic images (if radiation exposure indices are not available) Please consult full operative report of the attending physician for description of the procedure. TECHNICAL DOCUMENTATION: JOB ID: [id number] [employer]- All Rights Reserved Reading location - IP/workstation name: [email or web address]
[2017-11-24] MEDS: SENNOSIDES/DOCUSATE 8.6-50 MG 1 EACH TABLET PO SCH ×2 (11:18→17:30)
[2017-11-24] MEDS: METOPROLOL SUCCINATE 50 MG TAB.SR.24H PO SCH (11:19)
[2017-11-24] MEDS: PRENATAL VITAMIN W DHA CAPSULE PO SCH (11:19)
[2017-11-24] MEDS: CEFAZOLIN 1 GM/D5W RTU 1 GM/50 ML RTUPB IV SCH ×2 (11:29→17:30)
--- NOTE | 2017-11-24 12:05 | PDOC PROGRESS REPORT ---
Subjective Progress Note for:: 11/24/17 Subjective:: Patient is s/p right hip percutaneous pinning for impacted femoral neck fracture. she denied any significant pain presently. No chest pain or difficulty with breathing. No reported fever or chills. No nausea, vomiting or abdominal pain. Reason For Visit: RIGHT FEMORIAL NECK FRACTURE POST PINNING Physical Exam Vital Signs: Temp Pulse Resp BP Pulse Ox 97.5 F 67 16 138/94 H 94 11/24/17 11:10 11/24/17 11:10 11/24/17 11:10 11/24/17 11:10 11/24/17 11:10 Intake & Output 11/23/17 11/24/17 11/25/17 06:59 06:59 06:59 Intake Total 317 761 100 Output Total 100 Balance 317 761 0 Weight 49.6 kg General appearance: PRESENT: no acute distress, well-developed, well-nourished Head exam: PRESENT: atraumatic, normocephalic Mouth exam: PRESENT: moist Respiratory exam: PRESENT: clear to auscultation mary ann Cardiovascular exam: PRESENT: RRR. ABSENT: diastolic murmur, rubs, systolic murmur Pulses: PRESENT: normal dorsalis pedis pul, +2 pedal pulses bilateral Vascular exam: PRESENT: normal capillary refill. ABSENT: pallor GI/Abdominal exam: PRESENT: normal bowel sounds, soft. ABSENT: distended, guarding, mass, organolmegaly, rebound, tenderness Extremities exam: ABSENT: pedal edema Neurological exam: PRESENT: alert, awake, oriented to person, oriented to place , oriented to time, oriented to situation, CN II-XII grossly intact. ABSENT: motor sensory deficit Psychiatric exam: PRESENT: appropriate affect, normal mood. ABSENT: homicidal ideation, suicidal ideation Skin exam: PRESENT: dry, warm, other - right thigh operative site dressing satisfactory Results Laboratory Results: 11/22/17 19:05 Impressions: Chest X-Ray 11/22/17 17:16 IMPRESSION: NO ACUTE RADIOGRAPHIC FINDING IN THE CHEST. Fluoroscopy 11/24/17 08:15 IMPRESSION: IMAGE(S) OBTAINED DURING PROCEDURE. Hip/Pelvis X-Ray 11/24/17 08:15 IMPRESSION: IMAGE(S) OBTAINED DURING PROCEDURE. Assessment & Plan - Diagnosis (1) Closed right hip fracture Qualifiers: Encounter type: initial encounter Qualified Code(s): S72.001A - Fracture of unspecified part of neck of right femur, initial encounter for closed fracture Is this a current diagnosis for this admission?: Yes (2) Fracture of right hip due to osteoporosis Qualifiers: Encounter type: initial encounter Qualified Code(s): M80.051A - Age- related osteoporosis with current pathological fracture, right femur, initial encounter for fracture Is this a current diagnosis for this admission?: Yes (4) Osteoarthritis of both shoulders Qualifiers: Osteoarthritis type: primary Qualified Code(s): M19.011 - Primary osteoarthritis, right shoulder; M19.012 - Primary osteoarthritis, left shoulder ; M19.012 - Primary osteoarthritis, left shoulder Is this a current diagnosis for this admission?: Yes (5) Chronic pain syndrome Is this a current diagnosis for this admission?: Yes (6) Chronic prescription opiate use Is this a current diagnosis for this admission?: Yes - Time Time Spent with patient: 25-34 minutes Medications reviewed and adjusted accordingly: Yes Anticipated discharge: Home with Homehealth Within: Other - Inpatient Certification Based on my medical assessment, after consideration of the patient's comorbidities, presenting symptoms, or acuity I expect that the services needed warrant INPATIENT care.: Yes I certify that my determination is in accordance with my understanding of Medicare's requirements for reasonable and necessary INPATIENT services [42 CFR 412.3e].: Yes Medical Necessity: Need Close Monitoring Due to Risk of Patient Decompensation, Need For IV Fluids, Need For Continuous Telemetry Monitoring, Need for Surgery, Risk of Complication if Not Cared For in Hospital Post Hospital Care: D/C Medical Pathology Teacher Documentation - Plan Summary Plan Summary: See covering attending physician orders.
[2017-11-24] MEDS: RIVAROXABAN 10 MG TABLET PO SCH (17:31)
[2017-11-25] MEDS: CEFAZOLIN 1 GM/D5W RTU 1 GM/50 ML RTUPB IV SCH ×4 (00:32→17:07)
[2017-11-25] MEDS: HYDROCODONE/ACETAMINOPHEN 5-325 MG TABLET PO PRN ×3 (03:37→14:58)
[2017-11-25] MEDS: LANSOPRAZOLE 30 MG TAB.RAP.DR PO SCH (05:29)
[2017-11-25 05:50] LABS: HEMATOCRIT 36.4 % (36.0-47.0); MEAN CORPUSCULAR HGB CONC 33.1 g/dL (32.0-36.0); MEAN CORPUSCULAR VOLUME 88 fl (80-97); PLATELET COUNT 243 10^3/uL (150-450); RED BLOOD COUNT 4.16 10^6/uL (3.72-5.28); RED CELL DISTRIBUTION WIDTH 15.4 % (11.5-14.0); WHITE BLOOD COUNT 12.7 10^3/uL (4.0-10.5)
[2017-11-25 05:52] LABS: HEMOGLOBIN 12.1 g/dL (12.0-15.5)
[2017-11-25 05:59] LABS: ANION GAP 11 (5-19); BLOOD UREA NITROGEN 13 mg/dL (7-20); CALCIUM 9.2 mg/dL (8.4-10.2); CARBON DIOXIDE 23 mmol/L (22-30); CHLORIDE 107 mmol/L (98-107); GLUCOSE 104 mg/dL (75-110); SODIUM 141.2 mmol/L (137-145)
[2017-11-25] MEDS: SENNOSIDES/DOCUSATE 8.6-50 MG 1 EACH TABLET PO SCH ×2 (09:11→17:07)
[2017-11-25] MEDS: PRENATAL VITAMIN W DHA CAPSULE PO SCH (09:11)
[2017-11-25] MEDS: METOPROLOL SUCCINATE 50 MG TAB.SR.24H PO SCH (09:11)
[2017-11-25] MEDS: RIVAROXABAN 10 MG TABLET PO SCH (17:07)
--- NOTE | 2017-11-25 17:34 | PDOC PROGRESS REPORT ---
Subjective Progress Note for:: 11/25/17 Subjective:: Patient ambulated with physical therapy today. Pain well controlled. Reason For Visit: RIGHT FEMORIAL NECK FRACTURE POST PINNING Physical Exam Vital Signs: Temp Pulse Resp BP Pulse Ox 37.3 C 69 17 119/64 99 11/25/17 15:59 11/25/17 15:59 11/25/17 15:59 11/25/17 15:59 11/25/17 15:59 Intake & Output 11/24/17 11/25/17 11/26/17 06:59 06:59 06:59 Intake Total 761 4831 100 Output Total 1020 Balance 761 3811 100 Weight 50.7 kg General appearance: PRESENT: no acute distress Adult Front & Back Image: 1 - Incision is dry clean and intact with mild bloody drainage. No erythema. Neurovascular intact distally. Results Laboratory Results: 11/25/17 04:41 11/25/17 04:41 11/25/17 11/25/17 04:41 04:41 WBC 12.7 H RBC 4.16 Hgb 12.1 D Hct 36.4 MCV 88 MCH 29.0 MCHC 33.1 RDW 15.4 H Plt Count 243 Sodium 141.2 Potassium 4.0 Chloride 107 Carbon Dioxide 23 Anion Gap 11 BUN 13 Creatinine 0.86 Est GFR ( Amer) > 60 Est GFR (Non-Af Amer) > 60 Glucose 104 Calcium 9.2 Impressions: Chest X-Ray 11/22/17 17:16 IMPRESSION: NO ACUTE RADIOGRAPHIC FINDING IN THE CHEST. Fluoroscopy 11/24/17 08:15 IMPRESSION: IMAGE(S) OBTAINED DURING PROCEDURE. Hip/Pelvis X-Ray 11/24/17 08:15 IMPRESSION: IMAGE(S) OBTAINED DURING PROCEDURE. Assessment & Plan - Diagnosis (1) Closed right hip fracture Qualifiers: Encounter type: initial encounter Qualified Code(s): S72.001A - Fracture of unspecified part of neck of right femur, initial encounter for closed fracture Is this a current diagnosis for this admission?: Yes - Plan Summary Plan Summary: Patient is postop day 1 from percutaneous pinning of right valgus impacted femoral neck fracture. Patient will can weight-bear as tolerated. Recommend a walker. Patient wants to go home and if okay with physical therapy am okay with her being discharged straight to home. Meantime continue pain control and Xarelto for DVT prophylaxis for 2 weeks. She can follow-up in my office in 10-14 days from her surgery for removal of scott.
[2017-11-25] MEDS: OXYCODONE HCL IR 5 MG TABLET PO PRN (20:35)
--- NOTE | 2017-11-25 21:52 | PDOC PROGRESS REPORT ---
Subjective Progress Note for:: 11/25/17 Subjective:: She was seen by the bedside she apparently fell to her right femur, she did not remember the exact time she fell to the femoral, she status post pinning of the fracture femur, she is very thin clearly she has osteoporosis. She will need outpatient bone density measurement Reason For Visit: RIGHT FEMORIAL NECK FRACTURE POST PINNING Physical Exam Vital Signs: Temp Pulse Resp BP Pulse Ox 98.2 F 56 L 16 129/76 H 97 11/25/17 20:07 11/25/17 20:07 11/25/17 20:07 11/25/17 20:07 11/25/17 20:07 Intake & Output 11/24/17 11/25/17 11/26/17 06:59 06:59 06:59 Intake Total 761 4831 940 Output Total 1020 600 Balance 761 3811 340 Weight 50.7 kg General appearance: PRESENT: no acute distress Eye exam: PRESENT: PERRLA Respiratory exam: PRESENT: clear to auscultation mary ann Cardiovascular exam: PRESENT: +S1, +S2 GI/Abdominal exam: PRESENT: soft Neurological exam: PRESENT: alert Results Laboratory Results: 11/25/17 04:41 11/25/17 04:41 11/25/17 11/25/17 04:41 04:41 WBC 12.7 H RBC 4.16 Hgb 12.1 D Hct 36.4 MCV 88 MCH 29.0 MCHC 33.1 RDW 15.4 H Plt Count 243 Sodium 141.2 Potassium 4.0 Chloride 107 Carbon Dioxide 23 Anion Gap 11 BUN 13 Creatinine 0.86 Est GFR ( Amer) > 60 Est GFR (Non-Af Amer) > 60 Glucose 104 Calcium 9.2 Impressions: Chest X-Ray 11/22/17 17:16 IMPRESSION: NO ACUTE RADIOGRAPHIC FINDING IN THE CHEST. Fluoroscopy 11/24/17 08:15 IMPRESSION: IMAGE(S) OBTAINED DURING PROCEDURE. Hip/Pelvis X-Ray 11/24/17 08:15 IMPRESSION: IMAGE(S) OBTAINED DURING PROCEDURE. Assessment & Plan - Diagnosis (1) Chronic pain syndrome Is this a current diagnosis for this admission?: Yes (2) Chronic prescription opiate use Is this a current diagnosis for this admission?: Yes (3) Closed right hip fracture Qualifiers: Encounter type: initial encounter Qualified Code(s): S72.001A - Fracture of unspecified part of neck of right femur, initial encounter for closed fracture Is this a current diagnosis for this admission?: Yes (4) HTN (hypertension) Qualifiers: Hypertension type: essential hypertension Qualified Code(s): I10 - Essential (primary) hypertension Is this a current diagnosis for this admission?: Yes
[2017-11-26] MEDS: CEFAZOLIN 1 GM/D5W RTU 1 GM/50 ML RTUPB IV SCH ×5 (00:03→23:58)
[2017-11-26 05:04] LABS: HEMATOCRIT 37.4 % (36.0-47.0); HEMOGLOBIN 12.6 g/dL (12.0-15.5); MEAN CORPUSCULAR HEMOGLOBIN 29.4 pg (27.0-33.4); MEAN CORPUSCULAR HGB CONC 33.8 g/dL (32.0-36.0); MEAN CORPUSCULAR VOLUME 87 fl (80-97); PLATELET COUNT 233 10^3/uL (150-450); RED BLOOD COUNT 4.29 10^6/uL (3.72-5.28); RED CELL DISTRIBUTION WIDTH 15.6 % (11.5-14.0); WHITE BLOOD COUNT 8.6 10^3/uL (4.0-10.5)
[2017-11-26] MEDS: LANSOPRAZOLE 30 MG TAB.RAP.DR PO SCH (05:46)
[2017-11-26] MEDS ORDERED: ONDANSETRON 4 MG TAB.RAPDIS PO PRN (06:25)
[2017-11-26] MEDS: OXYCODONE HCL IR 5 MG TABLET PO PRN ×2 (06:51→19:33)
[2017-11-26] MEDS: SENNOSIDES/DOCUSATE 8.6-50 MG 1 EACH TABLET PO SCH ×2 (09:57→17:28)
[2017-11-26] MEDS: PRENATAL VITAMIN W DHA CAPSULE PO SCH (09:57)
[2017-11-26] MEDS: METOPROLOL SUCCINATE 50 MG TAB.SR.24H PO SCH (09:57)
--- NOTE | 2017-11-26 16:43 | PDOC PROGRESS REPORT ---
Subjective Progress Note for:: 11/26/17 Subjective:: Patient lying in bed comfortably. Does complain of pain but was able to ambulate 40 feet in physical therapy. Her only issue is constipation and states she would not be able to pass a bowel movement until she is at home. Denies chest pain or shortness of breath. Reason For Visit: RIGHT FEMORIAL NECK FRACTURE POST PINNING Physical Exam Vital Signs: Temp Pulse Resp BP Pulse Ox 98.5 F 64 16 133/64 H 98 11/26/17 15:30 11/26/17 15:30 11/26/17 15:30 11/26/17 15:30 11/26/17 15:30 Intake & Output 11/25/17 11/26/17 11/27/17 06:59 06:59 06:59 Intake Total 4831 1360 Output Total 1020 1250 Balance 3811 110 Weight 50.7 kg Musculoskeletal exam: PRESENT: other - Right lower extremity: Mild thigh swelling. Dressing clean/dry/intact no erythema or drainage. No calf tenderness. Intact plantar flexion/dorsiflexion. Results Laboratory Results: 11/26/17 04:33 11/25/17 04:41 11/26/17 04:33 WBC 8.6 RBC 4.29 Hgb 12.6 Hct 37.4 MCV 87 MCH 29.4 MCHC 33.8 RDW 15.6 H Plt Count 233 Impressions: Chest X-Ray 11/22/17 17:16 IMPRESSION: NO ACUTE RADIOGRAPHIC FINDING IN THE CHEST. Fluoroscopy 11/24/17 08:15 IMPRESSION: IMAGE(S) OBTAINED DURING PROCEDURE. Hip/Pelvis X-Ray 11/24/17 08:15 IMPRESSION: IMAGE(S) OBTAINED DURING PROCEDURE. Assessment & Plan - Diagnosis (1) Closed right hip fracture Qualifiers: Encounter type: initial encounter Qualified Code(s): S72.001A - Fracture of unspecified part of neck of right femur, initial encounter for closed fracture Is this a current diagnosis for this admission?: Yes Plan: Postop day #2 status post close reduction pertains pinning right femoral neck fracture #1 Xarelto for DVT prophylaxis #2 physical therapy weightbearing as tolerated #3 pain control #4 discharge planning patient would like to be discharged to home. If doing well with physical therapy orthopedically stable for discharge from our perspective. Patient will follow-up with Dr. Meehan in 10-14 days.
[2017-11-26] MEDS: RIVAROXABAN 10 MG TABLET PO SCH (17:29)
--- NOTE | 2017-11-26 21:26 | PDOC PROGRESS REPORT ---
Subjective Progress Note for:: 11/26/17 Subjective:: Patient was seen by the bedside, she continues to improve, hopefully discharge home in 1-2 days Reason For Visit: RIGHT FEMORIAL NECK FRACTURE POST PINNING Physical Exam Vital Signs: Temp Pulse Resp BP Pulse Ox 98.0 F 58 L 16 118/78 97 11/26/17 20:18 11/26/17 20:18 11/26/17 20:18 11/26/17 20:18 11/26/17 20:18 Intake & Output 11/25/17 11/26/17 11/27/17 06:59 06:59 06:59 Intake Total 4831 1360 1811 Output Total 1020 1250 Balance 3811 110 1811 Weight 50.7 kg General appearance: PRESENT: no acute distress Eye exam: PRESENT: PERRLA Respiratory exam: PRESENT: clear to auscultation mary ann Cardiovascular exam: PRESENT: +S1, +S2 GI/Abdominal exam: PRESENT: soft Neurological exam: PRESENT: alert Results Laboratory Results: 11/26/17 04:33 11/25/17 04:41 11/26/17 04:33 WBC 8.6 RBC 4.29 Hgb 12.6 Hct 37.4 MCV 87 MCH 29.4 MCHC 33.8 RDW 15.6 H Plt Count 233 Impressions: Chest X-Ray 11/22/17 17:16 IMPRESSION: NO ACUTE RADIOGRAPHIC FINDING IN THE CHEST. Fluoroscopy 11/24/17 08:15 IMPRESSION: IMAGE(S) OBTAINED DURING PROCEDURE. Hip/Pelvis X-Ray 11/24/17 08:15 IMPRESSION: IMAGE(S) OBTAINED DURING PROCEDURE. Assessment & Plan - Diagnosis (1) Closed right hip fracture Qualifiers: Encounter type: initial encounter Qualified Code(s): S72.001A - Fracture of unspecified part of neck of right femur, initial encounter for closed fracture Is this a current diagnosis for this admission?: Yes (2) Chronic pain syndrome Is this a current diagnosis for this admission?: Yes (3) Chronic prescription opiate use Is this a current diagnosis for this admission?: Yes (4) HTN (hypertension) Qualifiers: Hypertension type: essential hypertension Qualified Code(s): I10 - Essential (primary) hypertension Is this a current diagnosis for this admission?: Yes (5) Paroxysmal supraventricular tachycardia Is this a current diagnosis for this admission?: Yes
--- NOTE | 2017-11-26 21:30 | PDOC PROGRESS REPORT ---
Subjective Progress Note for:: 11/26/17 Subjective:: Patient was seen by the bedside, she continues to improve, hopefully discharge home in 1-2 days Reason For Visit: RIGHT FEMORIAL NECK FRACTURE POST PINNING Physical Exam Vital Signs: Temp Pulse Resp BP Pulse Ox 98.0 F 58 L 16 118/78 97 11/26/17 20:18 11/26/17 20:18 11/26/17 20:18 11/26/17 20:18 11/26/17 20:18 Intake & Output 11/25/17 11/26/17 11/27/17 06:59 06:59 06:59 Intake Total 4831 1360 1811 Output Total 1020 1250 Balance 3811 110 1811 Weight 50.7 kg General appearance: PRESENT: no acute distress Eye exam: PRESENT: PERRLA Respiratory exam: PRESENT: clear to auscultation mary ann Cardiovascular exam: PRESENT: +S1, +S2 GI/Abdominal exam: PRESENT: soft Neurological exam: PRESENT: alert, awake, oriented to person, oriented to place , oriented to time, oriented to situation, CN II-XII grossly intact. ABSENT: motor sensory deficit Results Laboratory Results: 11/26/17 04:33 11/25/17 04:41 11/26/17 04:33 WBC 8.6 RBC 4.29 Hgb 12.6 Hct 37.4 MCV 87 MCH 29.4 MCHC 33.8 RDW 15.6 H Plt Count 233 Impressions: Chest X-Ray 11/22/17 17:16 IMPRESSION: NO ACUTE RADIOGRAPHIC FINDING IN THE CHEST. Fluoroscopy 11/24/17 08:15 IMPRESSION: IMAGE(S) OBTAINED DURING PROCEDURE. Hip/Pelvis X-Ray 11/24/17 08:15 IMPRESSION: IMAGE(S) OBTAINED DURING PROCEDURE. Assessment & Plan - Diagnosis (1) Closed right hip fracture Qualifiers: Encounter type: initial encounter Qualified Code(s): S72.001A - Fracture of unspecified part of neck of right femur, initial encounter for closed fracture Is this a current diagnosis for this admission?: Yes (2) HTN (hypertension) Qualifiers: Hypertension type: essential hypertension Qualified Code(s): I10 - Essential (primary) hypertension Is this a current diagnosis for this admission?: Yes (3) Chronic pain syndrome Is this a current diagnosis for this admission?: Yes (4) Chronic prescription opiate use Is this a current diagnosis for this admission?: Yes
[2017-11-27] MEDS: CEFAZOLIN 1 GM/D5W RTU 1 GM/50 ML RTUPB IV SCH ×2 (05:19→13:27)
[2017-11-27] MEDS: LANSOPRAZOLE 30 MG TAB.RAP.DR PO SCH (05:19)
[2017-11-27 05:45] LABS: HEMATOCRIT 36.4 % (36.0-47.0); HEMOGLOBIN 12.2 g/dL (12.0-15.5); MEAN CORPUSCULAR HEMOGLOBIN 29.4 pg (27.0-33.4); MEAN CORPUSCULAR HGB CONC 33.6 g/dL (32.0-36.0); MEAN CORPUSCULAR VOLUME 88 fl (80-97); PLATELET COUNT 235 10^3/uL (150-450); RED BLOOD COUNT 4.15 10^6/uL (3.72-5.28); RED CELL DISTRIBUTION WIDTH 15.4 % (11.5-14.0); WHITE BLOOD COUNT 6.1 10^3/uL (4.0-10.5)
[2017-11-27] MEDS: OXYCODONE HCL IR 5 MG TABLET PO PRN (09:04)
[2017-11-27] MEDS: PRENATAL VITAMIN W DHA CAPSULE PO SCH (09:05)
[2017-11-27] MEDS: SENNOSIDES/DOCUSATE 8.6-50 MG 1 EACH TABLET PO SCH (09:05)
[2017-11-27] MEDS: METOPROLOL SUCCINATE 50 MG TAB.SR.24H PO SCH (09:07)
--- NOTE | 2017-11-27 14:29 | PDOC DISCHARGE SUMMARY ---
General - Admit/Disc Date/PCP Admission Date/Primary Care Provider: 11/22/17 18:32 ALBA CRUZ NP Discharge Date: 11/27/17 - Discharge Diagnosis (1) Closed right hip fracture Is this a current diagnosis for this admission?: Yes (2) HTN (hypertension) Is this a current diagnosis for this admission?: Yes (3) Chronic pain syndrome Is this a current diagnosis for this admission?: Yes (4) Chronic prescription opiate use Is this a current diagnosis for this admission?: Yes - Additional Information Resuscitation Status: Full Code Prescriptions: Rivaroxaban [Xarelto 10 mg Tablet] 10 mg PO WSUPPER #10 tablet Home Medications: Metoprolol Succinate [Toprol Xl 50 mg Tab.sr] 50 mg PO DAILYP PRN 11/22/17 Oxycodone HCl [Oxycodone HCl 10 MG Tablet] 10 mg PO Q8HP PRN 11/22/17 Rivaroxaban [Xarelto 10 mg Tablet] 10 mg PO WSUPPER #10 tablet 11/27/17 History of Present Illness History of Present Illness: GERARD PRUITT is a 77 year old female she was admitted for the management of right hip impacted femoral neck fracture Hospital Course Hospital Course: She was seen by orthopedic, she underwent right hip percutaneous pinning of the femoral neck fracture. She was treated with Xarelto for Thromboprophylaxis, she be discharged home today to continue outpatient care Physical Exam Vital Signs: Temp Pulse Resp BP Pulse Ox 98.7 F 62 14 102/55 L 96 11/27/17 11:43 11/27/17 11:43 11/27/17 11:43 11/27/17 11:43 11/27/17 11:43 Intake & Output 11/26/17 11/27/17 11/28/17 06:59 06:59 06:59 Intake Total 1360 2471 236 Output Total 1250 Balance 110 2471 236 Weight 49.6 kg General appearance: PRESENT: no acute distress Head exam: PRESENT: atraumatic, normocephalic Eye exam: PRESENT: conjunctiva pink, EOMI, PERRLA Ear exam: PRESENT: normal external ear exam Mouth exam: PRESENT: moist, tongue midline Neck exam: PRESENT: full ROM Respiratory exam: PRESENT: clear to auscultation mary ann Cardiovascular exam: PRESENT: RRR, +S1, +S2 GI/Abdominal exam: PRESENT: normal bowel sounds, soft Rectal exam: PRESENT: deferred Neurological exam: PRESENT: alert Psychiatric exam: PRESENT: appropriate affect, normal mood Skin exam: PRESENT: dry, intact, warm Results Laboratory Results: 11/27/17 05:19 11/25/17 04:41 11/27/17 05:19 WBC 6.1 RBC 4.15 Hgb 12.2 Hct 36.4 MCV 88 MCH 29.4 MCHC 33.6 RDW 15.4 H Plt Count 235 Impressions: Chest X-Ray 11/22/17 17:16 IMPRESSION: NO ACUTE RADIOGRAPHIC FINDING IN THE CHEST. Fluoroscopy 11/24/17 08:15 IMPRESSION: IMAGE(S) OBTAINED DURING PROCEDURE. Hip/Pelvis X-Ray 11/24/17 08:15 IMPRESSION: IMAGE(S) OBTAINED DURING PROCEDURE. Qualifiers - * PATIENT BEING DISCHARGED WITH ANY OF THE FOLLOWING DIAGNOSIS: No
[2017-11-27 15:46] VITALS: BP 118/71
== END 2017-11-27 18:49 | disposition home health service (06) | DRG 482 ==
LOC: ER 16:44 → EH 18:32 → 4N 19:45
PROVIDERS: ADMIT Internal Medicine; ATTEND Internal Medicine
PROC: 0QH634Z Insertion of Internal Fixation Device into Right Upper Femur, Percutaneous Approach (ICD-10-PCS; principal; 2017-11-24 08:00)
DX: M80.051A Age-related osteoporosis with current pathological fracture, right femur, initial encounter for fracture (principal); I10 Essential (primary) hypertension; I47.9 Paroxysmal tachycardia, unspecified; M19.012 Primary osteoarthritis, left shoulder; M19.011 Primary osteoarthritis, right shoulder; G89.4 Chronic pain syndrome; F17.210 Nicotine dependence, cigarettes, uncomplicated; Z79.891 Long term (current) use of opiate analgesic
CPT/HCPCS: 01220; 36415; 71045; 80048; 80053; 85025; 85027; 85610; 86850; 86900; 86901; 93005; 93010; 94799; 99285; G8978-GP; G8979-GP; G8987-GO; G8988-GO; G8989-GO; J0131; J0690; J1100; J1650; J2250; J2405; J2704; J2765; J3010; J3490; J7120; S0119

== ENCOUNTER 2019-08-14 04:04 | Emergency (ER) | payer MEDICARE ==
--- NOTE | 2019-08-14 05:14 | ER Document Report ---
ED Medical Screen (RME) - General Chief Complaint: Headache Stated Complaint: HEADACHE Time Seen by Provider: 08/14/19 04:57 Primary Care Provider: FERNIE CASTANEDA MD [Primary Care Provider] - Follow up as needed Notes: 79-year-old female chief complaint of headache to the left side of the face, throbbing, started at 11 PM tonight. She states she also had a similar headache last night which resolved. She denies vomiting but she reports vague nausea. She states she supposed to be taking metoprolol but voluntarily took her self off of this. She denies injury, fever. She states she has a family history of brain aneurysms and "just wants to be checked out". TRAVEL OUTSIDE OF THE [place] IN LAST 30 DAYS: No - Related Data Allergies/Adverse Reactions: aloe vera Allergy (Verified 11/22/17 17:07) codeine [Codeine] Allergy (Verified 11/22/17 17:07) iodine [Iodine] Allergy (Verified 11/22/17 17:07) Penicillins Allergy (Verified 11/22/17 17:07) Sulfa (Sulfonamide Antibiotics) Allergy (Verified 11/22/17 17:07) Home Medications: oxycodone 10mg PRN Past Medical History - Social History Chew tobacco use (# tins/day): No Frequency of alcohol use: Occasional Drug Abuse: None - Past Medical History Cardiac Medical History: Reports: Hx Hypertension - unmedicated Renal/ Medical History: Denies: Hx Peritoneal Dialysis Musculoskeltal Medical History: Reports Hx Arthritis Psychiatric Medical History: Denies: Hx Depression Past Surgical History: Reports: Hx Breast Surgery, Hx Orthopedic Surgery - Immunizations Immunizations up to date: Yes Hx Diphtheria, Pertussis, Tetanus Vaccination: No Physical Exam - Vital signs Vitals: Temp Pulse Resp BP Pulse Ox 97.5 F 62 16 168/96 H 98 08/14/19 04:21 08/14/19 04:21 08/14/19 04:21 08/14/19 04:21 08/14/19 04:21 - General General appearance: Appears well In distress: None - Smiling, talkative, well-appearing - Neurological Neuro grossly intact: Yes Cognition: Normal Orientation: AAOx4 Sherman Coma Scale Eye Opening: Spontaneous Vero Coma Scale Verbal: Oriented Vero Coma Scale Motor: Obeys Commands Sherman Coma Scale Total: 15 Speech: Normal, Dysarthria Cranial nerves: Normal Motor strength normal: LUE, RUE, LLE, RLE Course - Re-evaluation Re-evalutation: I have greeted and performed a rapid initial assessment of this patient. A comprehensive ED assessment and evaluation of the patient, analysis of test results and completion of the medical decision making process will be conducted by additional ED providers. - Vital Signs Vital signs: Temp Pulse Resp BP Pulse Ox 97.5 F 62 16 168/96 H 98 08/14/19 04:21 08/14/19 04:21 08/14/19 04:21 08/14/19 04:21 08/14/19 04:21 Doctor's Discharge - Discharge Referrals: FERNIE CASTANEDA MD [Primary Care Provider] - Follow up as needed
[2019-08-14] MEDS ORDERED: ONDANSETRON HCL INJ/PF 4 MG/2 ML SDV IV ONE (05:16)
[2019-08-14 06:30] LABS: HEMATOCRIT 40.8 % (36.0-47.0); HEMOGLOBIN 13.6 g/dL (12.0-15.5); MEAN CORPUSCULAR HEMOGLOBIN 29.5 pg (27.0-33.4); MEAN CORPUSCULAR HGB CONC 33.4 g/dL (32.0-36.0); MEAN CORPUSCULAR VOLUME 88 fl (80-97); PLATELET COUNT 234 10^3/uL (150-450); RED BLOOD COUNT 4.62 10^6/uL (3.72-5.28); RED CELL DISTRIBUTION WIDTH 15.3 % (11.5-14.0)
[2019-08-14 06:44] LABS: ANION GAP 8 (5-19); BLOOD UREA NITROGEN 13 mg/dL (7-20); CALCIUM 9.6 mg/dL (8.4-10.2); CARBON DIOXIDE 23 mmol/L (22-30); CHLORIDE 109 mmol/L (98-107); GLUCOSE 99 mg/dL (75-110); POTASSIUM 3.7 mmol/L (3.6-5.0)
[2019-08-14 06:53] LABS: ABSOLUTE LYMPHOCYTES# (MANUAL) 1.4 10^3/uL (0.5-4.7); ABSOLUTE MONOCYTES # (MANUAL) 0.4 10^3/uL (0.1-1.4); BASOPHILS % (MANUAL) 0 % (0-2); EOSINOPHILS % (MANUAL) 0 % (0-6); LYMPHOCYTES % (MANUAL) 27 % (13-45); MONOCYTES % (MANUAL) 8 % (3-13); SEGMENTED NEUTROPHILS % (MAN) 65 % (42-78); TOTAL CELLS COUNTED 100
[2019-08-14 06:55] LABS: ANISOCYTOSIS SLIGHT
[2019-08-14 06:56] LABS: PLATELET COMMENT ADEQUATE; TEAR DROP CELLS SLIGHT
--- NOTE | 2019-08-14 06:59 | RADIOLOGY REPORT (SQ) ---
EXAM DESCRIPTION: CT HEAD WITHOUT IV CONTRAST COMPLETED DATE/TME: 08/14/2019 05:02 CLINICAL HISTORY: left sided headache, nausea COMPARISON: 10/13/2016 TECHNIQUE: Axial CT of the head obtained from the skull apex to the skull base without contrast. FINDINGS: No acute intracranial hemorrhage identified. No mass, mass effect, shift of the midline, abnormal extra-axial fluid collection or CT evidence of acute ischemic change identified. The ventricular system and sulcal spaces are mildly enlarged compatible with mild cerebral atrophy. Scattered areas of hypodensity throughout the supratentorial white matter are nonspecific and may be related to chronic small vessel ischemic change. 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 The visualized paranasal sinuses and the mastoids are clear. No skull fracture identified. Visualized orbits and globes are unremarkable. Atherosclerotic calcification of the intracranial internal carotid arteries. IMPRESSION: 1. No acute intracranial abnormality by CT criteria. This exam was performed according to our departmental dose-optimization program, which includes automated exposure control, adjustment of the mA and/or kV according to patient size and/or use of iterative reconstruction technique.
--- NOTE | 2019-08-14 07:30 | ER Document Report ---
ED Headache - General Chief Complaint: Headache Stated Complaint: HEADACHE Time Seen by Provider: 08/14/19 04:57 Primary Care Provider: FERNIE CASTANEDA MD [Primary Care Provider] - Follow up as needed Notes: This 73-year-old woman presents to the emergency department with a complaint of headache. Apparently began having a severe headache at home earlier last night. She had taken Tylenol but decided to come to the emergency department for further evaluation and treatment. She has had headaches in the past. She denies any associated neurologic abnormalities. TRAVEL OUTSIDE OF THE [place] IN LAST 30 DAYS: No - Related Data Allergies/Adverse Reactions: aloe vera Allergy (Verified 11/22/17 17:07) codeine [Codeine] Allergy (Verified 11/22/17 17:07) iodine [Iodine] Allergy (Verified 11/22/17 17:07) Penicillins Allergy (Verified 11/22/17 17:07) Sulfa (Sulfonamide Antibiotics) Allergy (Verified 11/22/17 17:07) Home Medications: oxycodone 10mg PRN Past Medical History - Social History Smoking Status: Current Some Day Smoker Chew tobacco use (# tins/day): No Frequency of alcohol use: Occasional Drug Abuse: None Family History: Reviewed & Not Pertinent Patient has suicidal ideation: No Patient has homicidal ideation: No - Past Medical History Cardiac Medical History: Reports: Hx Hypertension - unmedicated Renal/ Medical History: Denies: Hx Peritoneal Dialysis Musculoskeletal Medical History: Reports Hx Arthritis Psychiatric Medical History: Denies: Hx Depression Past Surgical History: Reports: Hx Breast Surgery, Hx Orthopedic Surgery - Immunizations Immunizations up to date: Yes Hx Diphtheria, Pertussis, Tetanus Vaccination: No Hx Pneumococcal Vaccination: 07/22/13 Review of Systems - Review of Systems Notes: Constitutional: Negative for fever. HENT: Negative for sore throat. Eyes: Negative for visual changes. Cardiovascular: Negative for chest pain. Respiratory: Negative for shortness of breath. Gastrointestinal: Negative for abdominal pain, vomiting or diarrhea. Genitourinary: Negative for dysuria. Musculoskeletal: Negative for back pain. Skin: Negative for rash. Neurological: + Headaches, no weakness or numbness. 10 point ROS negative except as marked above and in HPI. Physical Exam - Vital signs Vitals: Temp Pulse Resp BP Pulse Ox 97.5 F 62 16 168/96 H 98 08/14/19 04:21 08/14/19 04:21 08/14/19 04:21 08/14/19 04:21 08/14/19 04:21 - Notes Notes: VS: reviewed GEN: pleasant elderly female in no acute distress, HEENT: NCAT, EOMi, PERRL, oropharynx clear, airway patent, mucous membranes moist, EAC clear, TMs intact, NECK: thyroid not palpable, no LAD, carotic pulse 2+B, no bruits, no JVD RESP: clear the wheezes, rales or rhonchi Chest: heart: regular rate and rhythm, no murmur,gallop or rub, nontender ABD: +BS, distended, nontender, no HSM PULSES: 2+femoral B, 1+ PT/DP B EXT no edema to non-tender; non clubbing, cyanosis SKIN: warm and intact NEURO: AOX3; difficulty remembering events, dates; remainder of exam nonfocal Course - Re-evaluation Re-evalutation: 08/14/19 07:26 Patient's headache resolved spontaneously in the emergency department, she had taken Tylenol prior to coming to the emergency department. CT scan of the head is negative for any acute intracranial findings. I have explained to the patient that she is doing well blood pressure stable and her CT scan negative we can discharge her home to follow-up with her primary care doctor or return to the emergency department if she has further concerns or difficulties. The patient is in agreement with that plan and is ready to go home. - Vital Signs Vital signs: Temp Pulse Resp BP Pulse Ox 97.5 F 62 16 168/96 H 98 08/14/19 04:21 08/14/19 04:21 08/14/19 04:21 08/14/19 04:21 08/14/19 04:21 - Laboratory Result Diagrams: 08/14/19 06:14 08/14/19 06:14 Laboratory results interpreted by me: 08/14/19 08/14/19 06:14 06:14 RDW 15.3 H Chloride 109 H Est GFR (MDRD) Non-Af 57 L 08/14/19 07:27 I have reviewed laboratory data and used this information for the treatment decisions regarding the patient. - Diagnostic Test Radiology reviewed: Image reviewed, Reports reviewed Discharge - Discharge Clinical Impression: Headache Qualifiers: Headache type: unspecified Headache chronicity pattern: unspecified pattern Intractability: not intractable Qualified Code(s): R51 - Headache Condition: Good Disposition: HOME, SELF-CARE Instructions: Headache ([facility]) Additional Instructions: You have been seen in the Emergency Department (ED) for a headache. Please use Tylenol (acetaminophen) or Motrin (ibuprofen) as needed for symptoms, but only as written on the box. As we have discussed, please follow up with your primary care doctor as soon as possible regarding today's ED visit and your headache symptoms. Call your doctor or return to the ED if you have a worsening headache, sudden and severe headache, confusion, slurred speech, facial droop, weakness or numbness in any arm or leg, extreme fatigue, or other symptoms that concern you. Referrals: FERNIE CASTANEDA MD [Primary Care Provider] - Follow up as needed
[2019-08-14 07:43] VITALS: BP 147/94
== END 2019-08-14 07:48 | disposition home or self-care (01) ==
LOC: ER 04:04
DX: R51 Headache (principal); F17.200 Nicotine dependence, unspecified, uncomplicated; I10 Essential (primary) hypertension
CPT/HCPCS: 36415; 70450; 80048; 85025; 99284